=== PATIENT | female | born 1955 | race Caucasian/White ===

== ENCOUNTER 2024-12-30 03:38 | Emergency (ER) | payer MEDICARE ==
[~2024-12-30] VITALS: Ht 167.6 cm; Wt 77.1 kg
[2024-12-30] MEDS ORDERED: Morphine Sulfate 4 MG/1 ML Injection IV ONE (06:25)
[2024-12-30] MEDS ORDERED: Ketamine HCl 100 MG / ML 5ML Vial IV ONE (06:40)
[2024-12-30] MEDS ORDERED: NS 1,000 ML IV SCH ×2 (07:05→12:10)
[2024-12-30] MEDS ORDERED: Ketorolac Tromethamine 15mg Vial IV ONE (09:10)
[2024-12-30] MEDS ORDERED: Ondansetron HCl 2 MG / ML 2ML Vial IV ONE (09:25)
[2024-12-30] MEDS ORDERED: Prochlorperazine Edisylate 10 mg Vial IV ONE ×2 (10:30→11:15)
[2024-12-30 11:35] LABS: BASOPHILS ABSOLUTE AUTO 0.09 K/mm3 (0.00-0.23); BASOPHILS PERCENT AUTO 1 % (0-2); EOSINOPHILS ABSOLUTE AUTO 0.02 K/mm3 (0.00-0.68); EOSINOPHILS PERCENT AUTO 0 % (0-6); Hematocrit 35.7 % (33.0-51.0); Hemoglobin 12.3 g/dL (11.5-16.0); IMMATURE GRAN PERCENT AUTO 1 % (0-1); LYMPHOCYTES ABSOLUTE AUTO 1.11 K/mm3 (0.84-5.20); LYMPHOCYTES PERCENT AUTO 11 % (21-46); MONOCYTES PERCENT AUTO 7 % (4-13); Mean Corpuscular HGB 34.3 pg (26.0-34.0); Mean Corpuscular HGB Conc 34.5 g/dL (31.5-36.5); Mean Corpuscular Volume 99 fL (80-100); Mean Platelet Volume 9.2 fL (9.1-12.4); NEUTROPHILS ABSOLUTE AUTO 8.12 K/mm3 (1.96-9.15); NEUTROPHILS PERCENT AUTO 80 % (41-73); Platelet Count 294 K/mm3 (150-400); RDW Coefficient Variation 13.7 % (11.7-14.2); RDW Standard Deviation 50.3 fL (35.1-46.3); Red Blood Cell Count 3.59 M/mm3 (3.80-5.20); White Blood Cell Count 10.14 K/mm3 (4.00-11.30)
[2024-12-30 11:41] LABS: Bun/Creatinine Ratio 12.3 (12.0-20.0); Calcium, Blood 8.9 mg/dL (8.5-10.1); Creatinine, Blood 1.14 mg/dL (0.40-1.00); Potassium, Blood 3.6 mmol/L (3.5-5.5)
[2024-12-30] MEDS ORDERED: ONDA4ODT MM (13:43)
[2024-12-30] MEDS ORDERED: OXYC5 PO (13:43)
[2024-12-30] MEDS ORDERED: OxyCODONE HCL 5 MG TAB PO ONE (14:15)
[2024-12-30 15:29] VITALS: BP 135/69
[2025-01-05] MEDS ORDERED: HUMALOG100 UNIT/1 (08:46)
[2025-01-05] MEDS ORDERED: INSULANI INJ (08:46)
[2025-01-05] MEDS ORDERED: ZOCOR20 MG PO (08:47)
[2025-01-05] MEDS ORDERED: LOSA50 PO (08:48)
[2025-01-05] MEDS ORDERED: EUTHYROX100 MCG PO (08:48)
[2025-01-05] MEDS ORDERED: ESOM20 PO (08:49)
[2025-01-06] MEDS ORDERED: Percocet 5-3251 EACH PO (06:40)
[2025-01-06] MEDS ORDERED: CLIN150 PO (06:43)
== END 2024-12-30 15:41 | disposition home or self-care (01) ==
LOC: ER 03:38
PROVIDERS: Emergency Medicine
DX: S82.852A Displaced trimalleolar fracture of left lower leg, initial encounter for closed fracture (principal); E11.9 Type 2 diabetes mellitus without complications; W18.30XA Fall on same level, unspecified, initial encounter; Z79.4 Long term (current) use of insulin
CPT/HCPCS: 27818; 73600; 73610; 80048; 82947; 85025; 93005; 93010; 96374-59; 96375-59; 97162; 97530; 99152; 99153; 99284-25; A9270; J0780; J1885; J2270; J2405; J7030

== ENCOUNTER 2025-03-01 02:25 | Day surgery (SDC) | payer MEDICARE ==
[~2025-03-01 02:25] MED LIST: CLIN150 PO; ESOM20 PO; EUTHYROX100 MCG PO; HUMALOG100 UNIT/1; INSULANI INJ; LOSA50 PO; ONDA4ODT MM; OXYC5 PO; Percocet 5-3251 EACH PO; ZOCOR20 MG PO
[2025-03-01] MEDS ORDERED: Lidocaine HCl 4% Cream 5 GM ONE (13:41)
== END 2025-03-01 23:00 | disposition home or self-care (01) ==
LOC: WOUND 02:25
DX: L89.523 Pressure ulcer of left ankle, stage 3 (principal); E11.622 Type 2 diabetes mellitus with other skin ulcer; E11.40 Type 2 diabetes mellitus with diabetic neuropathy, unspecified; I10 Essential (primary) hypertension; K21.9 Gastro-esophageal reflux disease without esophagitis; Z79.4 Long term (current) use of insulin
CPT/HCPCS: A6213; A9270; G0463

== ENCOUNTER 2025-03-08 02:04 | Day surgery (SDC) | payer MEDICARE ==
[2025-03-08] MEDS ORDERED: Lidocaine HCl 4% Cream 5 GM ONE (14:57)
== END 2025-03-08 23:00 | disposition home or self-care (01) ==
LOC: WOUND 02:04
DX: L89.523 Pressure ulcer of left ankle, stage 3 (principal); E11.622 Type 2 diabetes mellitus with other skin ulcer; E11.40 Type 2 diabetes mellitus with diabetic neuropathy, unspecified
CPT/HCPCS: A6213; A9270; G0463

== ENCOUNTER 2025-03-17 04:18 | Day surgery (SDC) | payer MEDICARE ==
[2025-03-17] MEDS ORDERED: Lidocaine HCl 4% Cream 5 GM ONE (12:55)
== END 2025-03-17 23:00 | disposition home or self-care (01) ==
LOC: WOUND 04:18
DX: L89.523 Pressure ulcer of left ankle, stage 3 (principal); E11.40 Type 2 diabetes mellitus with diabetic neuropathy, unspecified
CPT/HCPCS: A6213; A9270

== ENCOUNTER 2025-04-07 00:51 | Day surgery (SDC) | payer MEDICARE ==
[2025-04-07] MEDS ORDERED: Lidocaine HCl 4% Cream 5 GM ONE (12:39)
== END 2025-04-07 23:00 | disposition home or self-care (01) ==
LOC: WOUND 00:51
DX: L89.523 Pressure ulcer of left ankle, stage 3 (principal); E11.40 Type 2 diabetes mellitus with diabetic neuropathy, unspecified
CPT/HCPCS: A6213; A9270

== ENCOUNTER 2025-04-14 03:13 | Day surgery (SDC) | payer MEDICARE | END 2025-04-14 23:34 | disposition home or self-care (01) | LOC: WOUND 03:13 | DX: L89.523 Pressure ulcer of left ankle, stage 3 (principal); E11.40 Type 2 diabetes mellitus with diabetic neuropathy, unspecified | CPT/HCPCS: A6213; G0463 ==

== ENCOUNTER → 2025-04-14 | Outpatient (CLI) | payer MEDICARE | END | disposition home or self-care (01) | LOC: LAB 11:48 → LAB SHORT 11:48 | DX: N39.0 Urinary tract infection, site not specified (principal); R30.0 Dysuria | CPT/HCPCS: 87077; 87086; 87186 ==

== ENCOUNTER 2025-04-21 02:17 | Day surgery (SDC) | payer MEDICARE | END 2025-04-21 23:00 | disposition home or self-care (01) | LOC: WOUND 02:17 | DX: L89.523 Pressure ulcer of left ankle, stage 3 (principal); E11.40 Type 2 diabetes mellitus with diabetic neuropathy, unspecified | CPT/HCPCS: A6213; G0463 ==

== ENCOUNTER 2025-05-12 00:27 | Day surgery (SDC) | payer MEDICARE ==
[2025-05-12] MEDS ORDERED: Lidocaine HCl 4% Cream 5 GM ONE (10:50)
== END 2025-05-12 23:00 | disposition home or self-care (01) ==
LOC: WOUND 00:27
DX: L89.523 Pressure ulcer of left ankle, stage 3 (principal); E11.622 Type 2 diabetes mellitus with other skin ulcer
CPT/HCPCS: A6213; A9270; G0463

== ENCOUNTER 2025-07-15 12:42 | Inpatient (IN) | payer MEDICARE ==
[~2025-07-15] VITALS: Ht 167.6 cm; Wt 71.0 kg
[2025-07-15] MEDS ORDERED: NS 1,000 ML IV SCH ×3 (13:10→15:20)
[2025-07-15 13:22] LABS: BASOPHILS ABSOLUTE AUTO 0.10 K/mm3 (0.00-0.23); BASOPHILS PERCENT AUTO 1 % (0-2); EOSINOPHILS ABSOLUTE AUTO 0.05 K/mm3 (0.00-0.68); EOSINOPHILS PERCENT AUTO 0 % (0-6); Hematocrit 41.3 % (33.0-51.0); Hemoglobin 13.8 g/dL (11.5-16.0); IMMATURE GRAN ABSOLUTE AUTO 0.07 K/mm3 (0.00-0.10); IMMATURE GRAN PERCENT AUTO 1 % (0-1); LYMPHOCYTES ABSOLUTE AUTO 1.61 K/mm3 (0.84-5.20); LYMPHOCYTES PERCENT AUTO 11 % (21-46); MONOCYTES ABSOLUTE AUTO 0.90 K/mm3 (0.16-1.47); MONOCYTES PERCENT AUTO 6 % (4-13); Mean Corpuscular HGB Conc 33.4 g/dL (31.5-36.5); Mean Corpuscular Volume 102 fL (80-100); NEUTROPHILS ABSOLUTE AUTO 11.45 K/mm3 (1.96-9.15); NEUTROPHILS PERCENT AUTO 81 % (41-73); NRBC ABSOLUTE 0.00 K/mm3 (0.00-0.02); NRBC Auto 0.0 /100 WBC (0.0-0.2); Platelet Count 305 K/mm3 (150-400); RDW Coefficient Variation 14.2 % (11.7-14.2); RDW Standard Deviation 54.1 fL (35.1-46.3)
[2025-07-15 13:35] LABS: Alanine Aminotransfer (ALT/SGP 14.0 U/L (12-78); Albumin, Blood 3.8 g/dL (3.4-5.0); Albumin/Globulin Ratio 0.8 (0.8-1.8); Anion Gap 15.0 mmol/L (3-11); Aspartate Aminotrans (AST/SGOT 20.0 U/L (12-37); Bilirubin, Total 0.6 mg/dL (0.1-1.0); Blood Urea Nitrogen 39.0 mg/dL (8-24); CO2, Blood 25.0 mmol/L (21-32); Calcium, Blood 11.7 mg/dL (8.5-10.1); Chloride, Blood 90.0 mmol/L (98-108); Creatinine, Blood 2.19 mg/dL (0.40-1.00); Globulin, Blood 4.5 g/dL (2.2-4.0); Glucose, Blood 281.0 mg/dL (70-99); Potassium, Blood 3.3 mmol/L (3.5-5.5); Sodium, Blood 127.0 mmol/L (136-145); Total Protein, Blood 8.3 g/dL (6.4-8.2)
[2025-07-15] MEDS ORDERED: CefTRIAXone Sodium 1,000 MG in NS 100 ML IV ONE ×2 (14:25→17:25)
[2025-07-15 14:36] LABS: Source, Urine Clean Catch
[2025-07-15 14:46] LABS: Bilirubin, Urine Neg (Neg); Glucose Qualitative, Urine Neg (Neg); Ketones, Urine Neg (Neg); Leukocyte Esterase, Urine 2+ (Neg); Protein, Urine 1+ (Neg); Specific Gravity, Urine 1.010 (1.003-1.022); Urobilinogen, Urine NORM (Normal)
[2025-07-15 14:51] LABS: Color, Urine Pale Yellow (P-Yellow)
[2025-07-15] MEDS ORDERED: Ondansetron HCl 2 MG / ML 2ML Vial IV PRN (15:20)
[2025-07-15] MEDS ORDERED: NS 1,200 ML IV ONE (15:25)
[2025-07-15] MEDS ORDERED: FLU VACC TS2025(65UP)/MF59C/PF 45 MCG/0.5 ML SYRINGE IM SCH (15:25)
[2025-07-15] MEDS ORDERED: Insulin Glargine 100 Unit/ML 3 ML SYR SC SCH (17:30)
[2025-07-15 17:47] VITALS: BP 173/90
[2025-07-15] MEDS ORDERED: ACET500 PO (17:54)
[2025-07-15] MEDS ORDERED: Prochlorperazine Edisylate 10 mg Vial IV ONE (18:30)
[2025-07-15 19:17] VITALS: BP 141/71
--- NOTE | 2025-07-15 19:19 | NUR ---
ADMISSION NOTE: PATIENT ARRIVES TO ROOM AT 1745 VIA GURNEY FROM ER FOR DX'S OF SEVERE SEPSIS c ACUTE ORGAN DYSFUNCTION. PATIENT TRANSFERRED TO BED c 1 ASSIST/FWW. PATIENT REPORTS NAUSEOUS, BUT NO VOMITING. PATIENT MEDICATED c OT DOSE IV COMPAZINE PER ORDER. ADMISSION, MEDREC AND SKIN ASSESSMENT COMPLETED. PATIENT RECEIVED OT DOSE PO POTASSIUM PER ORDER. PATIENT HAS PIV TO LAC INFUSING NS AT 100 MLS/HR. PATIENT A/OX4, ANSWER TO QUESTIONS APPROPRIATELY AND MAKE NEEDS KNOWN. PATIENT ORIENTATED TO ROOM AND CALL SYSTEM. BED IN LOWEST POSITION. BED ALARM ON FOR SAFETY. CALL LIGHT IN REACH.
[2025-07-15] MEDS ORDERED: Insulin Human Lispro 100 Units/ML 3ML Syringe SC ONE (19:30)
[2025-07-15] MEDS ORDERED: Lactobacil 2-S.Thermo-Bifido 1 1 Cap PO SCH (21:00)
[2025-07-15] MEDS ORDERED: Insulin Human Lispro 100 Units/ML 3ML Syringe SC SCH (21:00)
[2025-07-15] MEDS ORDERED: Miconazole Nitrate 2% 85 GM PWD TOP SCH (21:00)
[2025-07-15] MEDS ORDERED: OxyCODONE 5 mg/Acetamin 325 mg TABLET PO PRN (22:25)
[2025-07-16 02:47] VITALS: BP 129/68
--- NOTE | 2025-07-16 04:52 | NUR ---
SHIFT SUMMARY A&OX4, ALTHOUGH BED ALARM IS ON DUE TO PREVIOUS FALLS, [facility], DM EDUCATION MAY BE NEEDED DUE TO CHANGING CONDITIONS OF THE PATIENT'S BODY (STATED EMERGENCY ADMINISTRAITION OF RESCUE MEDS DUE TO INSULIN USEAGE AT NIGHT). PAIN MANAGEMENT DISCUSSED WITH PATIENT, MEDICATED PER EMAR. PATIENT IS PLEASANT, HAS BED WAFFLE IN PLACE, BED AT LOWEST LEVEL, CALL LIGHT WITHIN REACH. NO DISTRESS NOTED
[2025-07-16 06:07] LABS: BASOPHILS ABSOLUTE AUTO 0.08 K/mm3 (0.00-0.23); BASOPHILS PERCENT AUTO 1 % (0-2); EOSINOPHILS ABSOLUTE AUTO 0.38 K/mm3 (0.00-0.68); EOSINOPHILS PERCENT AUTO 5 % (0-6); Hematocrit 34.4 % (33.0-51.0); Hemoglobin 11.3 g/dL (11.5-16.0); IMMATURE GRAN ABSOLUTE AUTO 0.05 K/mm3 (0.00-0.10); IMMATURE GRAN PERCENT AUTO 1 % (0-1); LYMPHOCYTES ABSOLUTE AUTO 1.42 K/mm3 (0.84-5.20); LYMPHOCYTES PERCENT AUTO 17 % (21-46); MONOCYTES ABSOLUTE AUTO 1.01 K/mm3 (0.16-1.47); MONOCYTES PERCENT AUTO 12 % (4-13); Mean Corpuscular HGB Conc 32.8 g/dL (31.5-36.5); Mean Corpuscular Volume 104 fL (80-100); NEUTROPHILS ABSOLUTE AUTO 5.44 K/mm3 (1.96-9.15); NEUTROPHILS PERCENT AUTO 65 % (41-73); NRBC ABSOLUTE 0.00 K/mm3 (0.00-0.02); NRBC Auto 0.0 /100 WBC (0.0-0.2); Platelet Count 243 K/mm3 (150-400); RDW Coefficient Variation 14.2 % (11.7-14.2); RDW Standard Deviation 54.4 fL (35.1-46.3)
[2025-07-16 06:39] LABS: Anion Gap 10.0 mmol/L (3-11); Blood Urea Nitrogen 34.0 mg/dL (8-24); CO2, Blood 22.0 mmol/L (21-32); Chloride, Blood 105.0 mmol/L (98-108); Creatinine, Blood 1.7 mg/dL (0.40-1.00); Glucose, Blood 221.0 mg/dL (70-99); Potassium, Blood 3.1 mmol/L (3.5-5.5); Sodium, Blood 134.0 mmol/L (136-145)
[2025-07-16 06:40] LABS: Calcium, Blood 9.2 mg/dL (8.5-10.1)
[2025-07-16 07:53] VITALS: BP 131/66
[2025-07-16] MEDS ORDERED: Enoxaparin 30 MG/0.3 ML SYR SC SCH (09:00)
[2025-07-16] MEDS ORDERED: Enoxaparin 40 MG/0.4 ML SYR SC SCH (09:00)
[2025-07-16] MEDS ORDERED: Insulin Glargine 100 Unit/ML 3 ML SYR SC ONE (11:10)
[2025-07-16] MEDS ORDERED: Insulin Human Lispro 100 Units/ML 3ML Syringe SC SCH (11:30)
--- NOTE | 2025-07-16 11:56 | NUR ---
MD NOTIFICATION NOTE: PATIENT BLOOD SUGAR BEFORE LUNCH WAS 365. PATIENT ON HIGH SLIDING SCALE COVERAGE, MEDICATED c 15 UNITS HUMALOG PER ORDER. NOTIFIED DR. GRAHAM, RECEIVED ORDER TO GIVE ADDITIONAL 5 UNITS OF HUMALOG NOW.
[2025-07-16] MEDS ORDERED: CefTRIAXone Sodium 2,000 MG in NS 100 ML IV SCH (12:00)
[2025-07-16] MEDS ORDERED: Insulin Human Lispro 100 Units/ML 3ML Syringe SC ONE (12:05)
[2025-07-16 15:35] VITALS: BP 137/111
[2025-07-16 16:00] VITALS: BP 109/68
--- NOTE | 2025-07-16 17:07 | NUR ---
SHIFT SUMMARY: PATIENT MEDICATED FOR BACK PAIN PER EMAR c GOOD EFFECT. PATIENT DENIES N/V, DIZZINESS, SOB AND CP/PRESSURE. PATIENT BLOOD SUGAR BEFORE DINNER WAS 258, MEDICATED c HUMALOG ON HIGH SLIDING SCALE PER ORDER. PATIENT HAS MOD APPETITE, CONTINENT OF BLADDER, AMBULATES TO BATHROOM/BACK IN BED c SBA. VITAL SIGNS REVIEWED. PATIENT SAT UP IN RECLINER CHAIR FOR THE MOST PART OF SHIFT, TOLERATED WELL. PATIENT A/OX4, HAS FLAT AFFECT, COOPERATIVE c CARE, CALLS APPROPRIATELY AND MAKE NEEDS KNOWN. CALL LIGHT IN REACH.
[2025-07-16 19:55] VITALS: BP 113/67
[2025-07-16] MEDS ORDERED: Prochlorperazine Edisylate 10 mg Vial IV PRN (21:55)
--- NOTE | 2025-07-17 03:01 | NUR ---
SHIFT SUMMARY NO ACUTE EVENTS DURING THIS SHIFT. PT IS A/O X4, SBA TO THE RESTROOM WITH HER OWN FWW. COOPERATIVE WITH CARE AND ABLE TO MAKE HER NEEDS KNOWN. MEDICATED WITH PRN PERCOCET PO FOR CHRONIC BACKPAIN. PT CONTINUES TO BE NAUSEOUS, NO VOMIT DURING THIS SHIFT. MEDICATED WITH COMPAZINE (NEW ORDER) AND ZOFRAN T/O THE NIGHT. NS INFUSING ORDERED. BED AT THE LOWEST POSITION, CALL LIGHT WITHIN REACH.
[2025-07-17 04:03] VITALS: BP 157/79
[2025-07-17 05:33] LABS: Hematocrit 33.7 % (33.0-51.0); Hemoglobin 11.2 g/dL (11.5-16.0); Mean Corpuscular HGB Conc 33.2 g/dL (31.5-36.5); Mean Corpuscular Volume 103 fL (80-100); NRBC ABSOLUTE 0.00 K/mm3 (0.00-0.02); NRBC Auto 0.0 /100 WBC (0.0-0.2); Platelet Count 230 K/mm3 (150-400); RDW Coefficient Variation 14.1 % (11.7-14.2); RDW Standard Deviation 54.1 fL (35.1-46.3)
[2025-07-17 05:56] LABS: Anion Gap 11.0 mmol/L (3-11); Blood Urea Nitrogen 27.0 mg/dL (8-24); CO2, Blood 23.0 mmol/L (21-32); Calcium, Blood 8.3 mg/dL (8.5-10.1); Chloride, Blood 104.0 mmol/L (98-108); Creatinine, Blood 1.48 mg/dL (0.40-1.00); Glucose, Blood 252.0 mg/dL (70-99); Potassium, Blood 3.1 mmol/L (3.5-5.5); Sodium, Blood 135.0 mmol/L (136-145)
[2025-07-17 07:51] VITALS: BP 124/75
[2025-07-17] MEDS ORDERED: Insulin Glargine 100 Unit/ML 3 ML SYR SC ONE (10:30)
[2025-07-17] MEDS ORDERED: Amoxicillin500 MG PO (12:43)
--- NOTE | 2025-07-17 14:07 | NUR ---
DISCHARGE PT AOX4, COOPERATIVE, ABLE TO MAKE NEEDS KNOWN. PT IS SBA WITH FWW, TOLERATING MEDICATIONS, ON ROOM AIR. NO ACUTE EVENTS TOOK PLACE THIS SHIFT. THIS RN WENT OVER DC PAPERWORK WITH PT, NEW MEDS FAXED. ALL BELONGINGS WENT WITH PT. EQUIPMENT OILER DC'D IV WITHOUT EVENTS, AND TRANSPORTED PT IS WC DOWN TO PT ENTRANCE. ROOM STRIPPED.
== END 2025-07-17 13:26 | disposition home or self-care (01) | DRG 872 ==
LOC: ER 12:42 → MEDS 15:17 → ENPENDDIS 07-17 11:25 → MEDS 07-17 13:26
PROVIDERS: ADMIT Internal Medicine
DX: A41.9 Sepsis, unspecified organism (principal); N39.0 Urinary tract infection, site not specified; E87.1 Hypo-osmolality and hyponatremia; N17.9 Acute kidney failure, unspecified; E87.20 Acidosis, unspecified; R65.20 Severe sepsis without septic shock; E03.9 Hypothyroidism, unspecified; E11.42 Type 2 diabetes mellitus with diabetic polyneuropathy; F41.9 Anxiety disorder, unspecified; F32.A Depression, unspecified; K21.9 Gastro-esophageal reflux disease without esophagitis; E87.6 Hypokalemia; E78.5 Hyperlipidemia, unspecified; I12.9 Hypertensive chronic kidney disease with stage 1 through stage 4 chronic kidney disease, or unspecified chronic kidney disease; E11.22 Type 2 diabetes mellitus with diabetic chronic kidney disease; N18.30 Chronic kidney disease, stage 3 unspecified; Z88.2 Allergy status to sulfonamides; Z79.4 Long term (current) use of insulin
CPT/HCPCS: 36415; 70450; 74176; 80048; 80053; 81001; 82947; 83605; 85025; 85027; 87077; 87086; 87186; 93005; 93010; 96361; 96365; 99285-25; A9270; J0696; J0780; J1650; J1815; J2405; J7030